=== PATIENT | male | born 1950 | race Caucasian/White ===

== ENCOUNTER 2016-12-31 13:24 | Observation (INO) | payer MEDICARE ==
[2016-12-31] MEDS ORDERED: PROAIR HFA8.5 GM INH (13:36)
[2016-12-31] MEDS ORDERED: THIAMINE HCL100 M2 PO (13:37)
[2016-12-31] MEDS ORDERED: ZESTRIL40 M2 PO (13:37)
[2016-12-31] MEDS ORDERED: TENORMIN25 M1 PO (13:37)
[2016-12-31] MEDS ORDERED: SPIRIVA18 MC1 INH (13:38)
[2016-12-31] MEDS ORDERED: IBUPROFEN200 M2 PO (13:41)
[2016-12-31] MEDS ORDERED: HALLS3.2 M1 MM (13:41)
[2016-12-31 14:05] LABS: BASO % 0.2 % (0-2); EOS % 0.2 % (0-7); IMMATURE GRANULOCYTES ABSOLUTE 0.03 tho/cmm (0-0.03); IMMATURE GRANULOCYTES PERCENT 0.3 % (0-0.3); LYMPH % 13.1 % (20-45); LYMPH ABSOLUTE COUNT 1.2 tho/cmm (0.8-4.5); MCH (MEAN CORPUSCULAR HGB) 34.6 pg (28.0-32.0); MCV (MEAN CELL VOLUME) 93.8 fl (82.0-96.0); MEAN PLATELET VOLUME 9.2 cmc (9.4-12.4); MONO % 6.8 % (0-12); MONOCYTE ABSOLUTE COUNT 0.6 tho/cmm (0.0-1.2); NEUTROPHILS % 79.4 % (40-80); PLATELET COUNT 316 tho/cmm (150-450); RED BLOOD COUNT 4.05 mil/cmm (4.40-5.70); RED CELL DISTRIBUTION WIDTH 12.7 % (12.4-16.4); WHITE BLOOD COUNT 8.9 tho/cmm (4.0-10.0)
[2016-12-31 14:06] LABS: MCHC MEAN CORPUSCULAR HGB CONC 36.8 % (32.0-36.0)
[2016-12-31 14:19] LABS: ALBUMIN 3.3 g/dl (3.5-5.0); ALKALINE PHOSPHATASE 53 U/L (33-138); ALT/SGPT 16 U/L (12-78); ANION GAP 20 mmol/L (0-20); AST/SGOT 25 U/L (10-40); BILIRUBIN,TOTAL 0.7 mg/dl (0.0-1.5); BLOOD UREA NITROGEN 6 mg/dl (6-24); CALCIUM 8.4 mg/dl (8.5-10.5); CARBON DIOXIDE-VENOUS 21 mmol/L (22-32); CHLORIDE 87 mmol/l (96-110); GLUCOSE 70 mg/dL (70-110); LIPASE 108 U/L (73-393); POTASSIUM 4.4 mmol/L (3.7-5.1); SODIUM 124 mmol/L (135-145); eGFR VALUE FOR BLACK >90 mL/Min
[2017-01-01] MEDS ORDERED: PROTONIX40 M2 PO (13:59)
== END 2017-01-01 13:55 ==
LOC: EDMED 13:24 → EMR2 16:53 → CAR1 17:10
PROVIDERS: Emergency Medicine; Nurse Practitioner Acute Care; ADMIT Internal Medicine
DX: R07.89 Other chest pain (principal); I10 Essential (primary) hypertension; F17.210 Nicotine dependence, cigarettes, uncomplicated; E87.1 Hypo-osmolality and hyponatremia; E88.09 Other disorders of plasma-protein metabolism, not elsewhere classified; J44.9 Chronic obstructive pulmonary disease, unspecified; R51 Headache; Z79.899 Other long term (current) drug therapy; Z82.49 Family history of ischemic heart disease and other diseases of the circulatory system; Z80.0 Family history of malignant neoplasm of digestive organs; Z90.49 Acquired absence of other specified parts of digestive tract; Z98.890 Other specified postprocedural states
CPT/HCPCS: A9500; C8929; G0378; J2270